=== PATIENT | female | born 1990 | race Caucasian/White ===

== ENCOUNTER → 2020-04-28 15:08 | Outpatient (CLI) | payer OTHER, MEDICAID, SELFPAY ==
--- NOTE | 2020-04-28 15:13 | DI.MRI.S_ITS ---
BREAST MRI OF BOTH BREASTS: 04/28/2020 CLINICAL: Solitary cyst of the Right breast. Comparison is made to exams dated: 03/27/2020 ultrasound, 03/27/2020 mammogram, and 03/07/2020 ultrasound - [facility]. PROCEDURE: MR BREAST BI WO/W CON INDICATIONS: Solitary cyst of right breast TECHNIQUE: The patient was placed prone in a dedicated breast imaging coil. Precontrast axial STIR and 3D FLASH without fat saturation sequences were obtained. Both before and after bolus injection of contrast, sequential 1-minute axial 3D FLASH with fat saturation sequences for 3 time points, with subtraction images and maximum intensity projections (MIP's) generated. Delayed sagittal FLASH images with fat saturation were also obtained. Computer-aided detection, including computer algorithm analysis of MRI image data for lesion detection and characterization, pharmacokinetic analysis, with further physician review for interpretation, was performed. COMPARISON: [facility], RG, US RIGHT BREAST, 03/27/2020, 14:53. [facility], MG, MM TOMOSYNTHESIS DIAGNOSTIC BI, 03/27/2020, 14:21. FINDINGS: Image quality: Excellent. There is moderate background parenchymal enhancement. Right breast: The right breast has multiple masses with thick enhancing tellez and central fluid signal consistent with abscesses. The largest is in the central breast measuring 2.8 x 2.9 x 3.2 centimeters. Superiorly from 11 o'clock to 2 o'clock multiple additional smaller abscesses, approximately 10, measuring from 0.5 centimeters to 1.3 centimeters are also seen. The skin overlying the breast from the 1 o'clock to 3 o'clock position is thickened measuring up to 7 millimeters. The right breast has multiple dilated ducts. Left breast: The left breast has multiple dilated ducts. The left breast demonstrates no abnormal focus, mass, or abnormal enhancement. No axillary or internal mammary chain adenopathy. IMPRESSION: PROBABLY BENIGN The appearance is most consistent with multiple breast abscesses and surrounding mastitis. Multiple neoplasms with necrosis is possible but less likely given clinical history and MRI findings. Recommend surgical drainage or repeat ultrasound and possible aspiration and culture of the largest central abscess, is also a consideration. Possible biopsy could also be performed at this time depending on ultrasound findings at that time. Findings were discussed with Dr. Mims who plans surgical drainage. This exam was interpreted at Station ID: [id number]. Electronically Signed By: Freedom Velasquez acr/:04/30/2020 15:36:12 letter sent: Followup Recommended ACR BI-RADS Category 3: Probably benign [id number]
== END ==
PROVIDERS: Family Provider Midwife; PCP Surgery; Referring Provider Surgery; Visit Provider Surgery
DX: N60.01 Solitary cyst of right breast (principal); N61.1 Abscess of the breast and nipple; N60.41 Mammary duct ectasia of right breast
CPT/HCPCS: 77049; A9579